=== PATIENT | female | born 1980 | race Caucasian/White ===

== ENCOUNTER 2019-03-07 02:42 | Emergency (ER) | payer MEDICAID ==
[~2019-03-07] VITALS: Ht 157.5 cm; Wt 54.5 kg
[2019-03-07] MEDS ORDERED: ondansetron/PF 4mg/2ml inj IV ONE (03:10)
[2019-03-07] MEDS ORDERED: normal saline 1000ML IV soln IVB ONE (03:10)
[2019-03-07 03:58] LABS: BASOPHILS % (AUTO) 0.6 % (0-1); EOSINOPHILS # (AUTO) 0.1 X10'3 (0-0.9); EOSINOPHILS % (AUTO) 0.9 % (0-6); HEMATOCRIT 37.4 % (35.0-45.0); HEMOGLOBIN 12.8 g/dl (12.0-16.0); LYMPHOCYTES # (AUTO) 1.7 X10'3 (1.1-4.8); LYMPHOCYTES % (AUTO) 21.2 % (21-51); MEAN CORPUSCULAR HEMOGLOBIN 31.5 PG (27.0-31.0); MEAN CORPUSCULAR HGB CONC 34.1 g/dL (33.0-36.5); MEAN CORPUSCULAR VOLUME 92.5 FL (78-98); MEAN PLATELET VOLUME 9.3 FL (7.4-10.4); MONOCYTES # (AUTO) 0.5 X10'3 (0-0.9); MONOCYTES % (AUTO) 6.1 % (2-12); NEUTROPHILS # (AUTO) 5.7 X10'3 (1.8-7.7); NEUTROPHILS % (AUTO) 71.2 % (42-75); PLATELET COUNT 251 X10'3 (140-440); RED BLOOD COUNT 4.05 X10'6 (4.20-5.60); RED CELL DISTRIBUTION WIDTH 12.9 % (11.5-14.5)
[2019-03-07 04:11] LABS: ALANINE AMINOTRANSFERASE 21 U/L (12-78); ALBUMIN 3.9 G/DL (3.4-5.0); ALBUMIN/GLOBULIN RATIO 1.1 (1.1-1.5); ALKALINE PHOSPHATASE 115 IU/L (46-116); ANION GAP 10 (8-16); ASPARTATE AMINO TRANSFERASE 19 U/L (10-37); BILIRUBIN,TOTAL 0.4 MG/DL (0.1-1.0); BLOOD UREA NITROGEN 7 MG/DL (7-18); BUN/CREATININE RATIO 9.3 (6.6-38.0); CALCIUM 8.5 MG/DL (8.5-10.1); CHLORIDE 105 MMOL/L (99-107); CREATININE 0.75 MG/DL (0.40-0.90); GLUCOSE 96 MG/DL (70-104); LIPASE 132 U/L (73-393); POTASSIUM 3.8 MMOL/L (3.5-5.1); SODIUM 138 MMOL/L (135-145); TOTAL PROTEIN 7.5 G/DL (6.4-8.2); eGFR 87 ML/MIN
[2019-03-07 04:25] LABS: CLARITY,URINE SLIGHTLY CLOUDY (Clear); COLOR,URINE YELLOW (Yellow); GLUCOSE, URINE NEGATIVE (Neg); KETONES,URINE NEGATIVE (Neg); LEUKOCYTE ESTERASE ,URINE NEGATIVE (Neg); NITRITES, URINE POSITIVE (Neg); OCCULT BLOOD,URINE TRACE-INTACT (Neg); PH,URINE 7.5 (4.8-8.0); PROTEIN,URINE NEGATIVE (Neg); UROBILINOGEN,URINE 0.2 E.U/dL (0.2-1.0)
[2019-03-07 04:30] LABS: UA COLLECTION TYPE CLN CATCH MIDSTREAM
[2019-03-07 04:31] LABS: BACTERIA,URINE 4+ /HPF (Neg); RBC,URINE NONE SEEN /HPF (0-2); WBC,URINE 0-4 /HPF (0-4)
[2019-03-07 04:32] LABS: SQUAMOUS EPITHELIAL CELL,UR FEW /LPF (FEW)
[2019-03-07] MEDS ORDERED: SULF1TAB49 PO (06:11)
[2019-03-07] MEDS ORDERED: ACET-3068 PO (06:11)
[2019-03-07] MEDS ORDERED: METR-159 PO (06:11)
[2019-03-07] MEDS ORDERED: HYDROcodone/acetaminophen 5mg/325mg tablet PO ONE (06:25)
[2019-03-07] MEDS ORDERED: TRAM50TA2 PO (06:41)
[2019-03-07 06:44] VITALS: BP 114/82
== END 2019-03-07 06:46 | disposition home or self-care (01) ==
LOC: ER 02:43
DX: N39.0 Urinary tract infection, site not specified (principal); N76.0 Acute vaginitis; M54.5 Low back pain; R11.10 Vomiting, unspecified; F17.200 Nicotine dependence, unspecified, uncomplicated; Z88.0 Allergy status to penicillin
CPT/HCPCS: 36415; 80053; 81001; 83605; 83690; 85025; 87040; 87077; 87088; 87186; 87210; 87491; 87591; 96361; 96374; 99283; J2405; J7030; Q0112

== ENCOUNTER 2019-07-13 19:20 | Emergency (ER) | payer MEDICAID ==
[~2019-07-13] VITALS: Ht 157.5 cm; Wt 50.0 kg
[2019-07-13 19:34] VITALS: BP 123/82
[2019-07-13 20:21] LABS: URINE HCG NEGATIVE (NEG)
[2019-07-13 20:30] LABS: CLARITY,URINE SLIGHTLY CLOUDY (Clear); COLOR,URINE YELLOW (Yellow); GLUCOSE, URINE NEGATIVE (Neg); KETONES,URINE NEGATIVE (Neg); LEUKOCYTE ESTERASE ,URINE NEGATIVE (Neg); NITRITES, URINE POSITIVE (Neg); OCCULT BLOOD,URINE TRACE-INTACT (Neg); PROTEIN,URINE NEGATIVE (Neg)
[2019-07-13 20:34] LABS: UA COLLECTION TYPE CLN CATCH MIDSTREAM
[2019-07-13 20:38] LABS: BACTERIA,URINE 4+ /HPF (Neg); MUCUS STRANDS FEW /LPF (Neg); RBC,URINE 0-2 /HPF (0-2); SQUAMOUS EPITHELIAL CELL,UR FEW /LPF (FEW)
[2019-07-13] MEDS ORDERED: cephalexin 250mg capsule PO STA (21:18)
[2019-07-13] MEDS ORDERED: CEPH500C5 PO (21:24)
== END 2019-07-13 21:28 | disposition home or self-care (01) ==
LOC: ER 19:21
DX: N39.0 Urinary tract infection, site not specified (principal); F17.200 Nicotine dependence, unspecified, uncomplicated; Z88.0 Allergy status to penicillin; Z79.899 Other long term (current) drug therapy
CPT/HCPCS: 81001; 81025; 87077; 87088; 87186; 99283

== ENCOUNTER 2019-09-28 01:21 | Emergency (ER) | payer MEDICAID ==
[~2019-09-28] VITALS: Ht 157.5 cm; Wt 47.7 kg
[~2019-09-28 01:21] MED LIST: CEPH500C5 PO
[2019-09-28 01:23] VITALS: BP 133/85
[2019-09-28] MEDS ORDERED: dexamethasone sod phosphate 10mg/ml inj IM STA (02:38)
[2019-09-28] MEDS ORDERED: HYDR28CR14 TOP (02:39)
[2019-09-28] MEDS ORDERED: triamcinolone acetonide 40mg/ml inj IM ONE (02:40)
== END 2019-09-28 03:15 | disposition home or self-care (01) ==
LOC: ER 01:21
DX: L30.9 Dermatitis, unspecified (principal); Z88.0 Allergy status to penicillin
CPT/HCPCS: 96372; 99284; J1100; J3301

== ENCOUNTER 2019-12-14 17:31 | Emergency (ER) | payer MEDICAID ==
[~2019-12-14] VITALS: Ht 157.5 cm; Wt 50.0 kg
[~2019-12-14 17:31] MED LIST changes: +HYDR28CR14 TOP
[2019-12-14] MEDS ORDERED: CEPH500C5 PO (17:49)
[2019-12-14] MEDS ORDERED: PHEN-716 PO (17:49)
[2019-12-14 18:08] LABS: URINE HCG NEGATIVE (NEG)
[2019-12-14 18:09] LABS: CLARITY,URINE SLIGHTLY CLOUDY (Clear); COLOR,URINE YELLOW (Yellow); GLUCOSE, URINE NEGATIVE (Neg); KETONES,URINE NEGATIVE (Neg); LEUKOCYTE ESTERASE ,URINE SMALL (Neg); NITRITES, URINE POSITIVE (Neg); OCCULT BLOOD,URINE MODERATE (Neg); PROTEIN,URINE 30 mg/dl (Neg); UROBILINOGEN,URINE 0.2 E.U/dL (0.2-1.0)
[2019-12-14 18:13] LABS: UA COLLECTION TYPE CLN CATCH MIDSTREAM
[2019-12-14 18:16] LABS: BACTERIA,URINE 3+ /HPF (Neg); MUCUS STRANDS FEW /LPF (Neg); RBC,URINE 0-2 /HPF (0-2); SQUAMOUS EPITHELIAL CELL,UR MANY /LPF (FEW); WBC,URINE 20-30 /HPF (0-4)
[2019-12-14 19:20] LABS: CLARITY,URINE SLIGHTLY CLOUDY (Clear); COLOR,URINE YELLOW (Yellow); GLUCOSE, URINE NEGATIVE (Neg); KETONES,URINE NEGATIVE (Neg); LEUKOCYTE ESTERASE ,URINE NEGATIVE (Neg); NITRITES, URINE POSITIVE (Neg); OCCULT BLOOD,URINE TRACE-INTACT (Neg); PROTEIN,URINE TRACE mg/dl (Neg); UA COLLECTION TYPE CLN CATCH MIDSTREAM
[2019-12-14 19:23] VITALS: BP 115/84
[2019-12-14 19:37] LABS: BACTERIA,URINE 3+ /HPF (Neg); MUCUS STRANDS FEW /LPF (Neg); SQUAMOUS EPITHELIAL CELL,UR FEW /LPF (FEW)
== END 2019-12-14 19:15 | disposition home or self-care (01) ==
LOC: ER 17:33
DX: N39.0 Urinary tract infection, site not specified (principal); Z88.0 Allergy status to penicillin; Z79.899 Other long term (current) drug therapy; Z90.710 Acquired absence of both cervix and uterus
CPT/HCPCS: 81001; 81025; 87077; 87088; 87186; 99283

== ENCOUNTER 2020-01-18 19:21 | Emergency (ER) | payer MEDICAID ==
[~2020-01-18] VITALS: Ht 157.5 cm; Wt 51.5 kg
[~2020-01-18 19:21] MED LIST changes: +PHEN-716 PO
[2020-01-18] MEDS ORDERED: ketorolac tromethamine 15mg/ml inj. IV ONE (19:50)
[2020-01-18] MEDS ORDERED: ondansetron/PF 4mg/2ml inj IV ONE (19:50)
[2020-01-18 20:06] LABS: BASOPHILS % (AUTO) 0.5 % (0-1); EOSINOPHILS # (AUTO) 0.1 X10'3 (0-0.9); EOSINOPHILS % (AUTO) 1.7 % (0-6); HEMATOCRIT 39.6 % (35.0-45.0); HEMOGLOBIN 13.2 g/dl (12.0-16.0); LYMPHOCYTES # (AUTO) 2.4 X10'3 (1.1-4.8); LYMPHOCYTES % (AUTO) 34.6 % (21-51); MEAN CORPUSCULAR HGB CONC 33.4 g/dL (33.0-36.5); MEAN CORPUSCULAR VOLUME 95.9 FL (78-98); MEAN PLATELET VOLUME 8.8 FL (7.4-10.4); MONOCYTES # (AUTO) 0.3 X10'3 (0-0.9); MONOCYTES % (AUTO) 4.9 % (2-12); NEUTROPHILS % (AUTO) 58.3 % (42-75); PLATELET COUNT 258 X10'3 (140-440); RED BLOOD COUNT 4.13 X10'6 (4.20-5.60); RED CELL DISTRIBUTION WIDTH 12.6 % (11.5-14.5); WHITE BLOOD COUNT 6.8 X10'3 (4.5-11.0)
[2020-01-18 20:18] LABS: ALANINE AMINOTRANSFERASE 24 U/L (12-78); ALBUMIN/GLOBULIN RATIO 1.1 (1.1-1.5); ALKALINE PHOSPHATASE 101 IU/L (46-116); ANION GAP 6 (8-16); ASPARTATE AMINO TRANSFERASE 18 U/L (10-37); BILIRUBIN,TOTAL 0.3 MG/DL (0.1-1.0); BLOOD UREA NITROGEN 7 MG/DL (7-18); BUN/CREATININE RATIO 9.2 (6.6-38.0); CALCIUM 8.7 MG/DL (8.5-10.1); CHLORIDE 107 MMOL/L (99-107); CREATININE 0.76 MG/DL (0.40-0.90); GLUCOSE 103 MG/DL (70-104); POTASSIUM 3.9 MMOL/L (3.5-5.1); SODIUM 141 MMOL/L (135-145); TOTAL CARBON DIOXIDE 28.1 MMOL/L (24-32); TOTAL PROTEIN 7.5 G/DL (6.4-8.2); eGFR 85 ML/MIN
[2020-01-18 20:19] LABS: LIPASE 158 U/L (73-393)
[2020-01-18 20:28] VITALS: BP 134/93
--- NOTE | 2020-01-18 20:28 | NUR ---
RELIEVING RN FOR BREAK, GAVE PT WARM BLANKET, PT SAID PAIN MED GIVEN EARLIER "HELPED A LITTLE", C/O RUQ ABD PAIN 03/16, NO N/V
[2020-01-18] MEDS ORDERED: HYDROcodone/acetaminophen 10/325mg tab PO ONE (20:50)
[2020-01-18 20:51] LABS: URINE HCG NEGATIVE (NEG)
[2020-01-18 20:55] LABS: CLARITY,URINE SLIGHTLY CLOUDY (Clear); COLOR,URINE YELLOW (Yellow); GLUCOSE, URINE NEGATIVE (Neg); KETONES,URINE NEGATIVE (Neg); LEUKOCYTE ESTERASE ,URINE TRACE (Neg); NITRITES, URINE POSITIVE (Neg); OCCULT BLOOD,URINE TRACE-INTACT (Neg); PH,URINE 6.5 (4.8-8.0); PROTEIN,URINE NEGATIVE (Neg); UROBILINOGEN,URINE 0.2 E.U/dL (0.2-1.0)
[2020-01-18 20:58] LABS: UA COLLECTION TYPE CLN CATCH MIDSTREAM
[2020-01-18 20:59] LABS: BACTERIA,URINE 1+ /HPF (Neg); RBC,URINE 0-2 /HPF (0-2); SQUAMOUS EPITHELIAL CELL,UR FEW /LPF (FEW); WBC CLUMPS,URINE FEW /HPF (NEGATIVE)
[2020-01-18] MEDS ORDERED: CIPR-230 PO (21:07)
[2020-01-18] MEDS ORDERED: ciprofloxacin 250mg tablet PO ONE (21:10)
== END 2020-01-18 21:22 | disposition home or self-care (01) ==
LOC: ER 19:22
DX: N39.0 Urinary tract infection, site not specified (principal); Z88.0 Allergy status to penicillin; Z79.899 Other long term (current) drug therapy
CPT/HCPCS: 36415; 76700; 80053; 81001; 81025; 83690; 85025; 87077; 87088; 87186; 96374; 96375; 99284; J1885; J2405

== ENCOUNTER 2020-01-26 22:41 | Emergency (ER) | payer MEDICAID ==
[~2020-01-26] VITALS: Ht 157.5 cm; Wt 51.8 kg
[~2020-01-26 22:41] MED LIST changes: +CIPR-230 PO
[2020-01-26] MEDS ORDERED: ondansetron/PF 4mg/2ml inj IV ONE (23:10)
[2020-01-26] MEDS ORDERED: normal saline 1000ML IV soln IVB ONE (23:10)
[2020-01-26] MEDS ORDERED: morphine 4 MG/ML inj SYRINge IV PRN (23:10)
--- NOTE | 2020-01-26 23:35 | NUR ---
Pt to CT
--- NOTE | 2020-01-26 23:49 | NUR ---
Per MD order Dilaudid 1mg IV now.
[2020-01-26] MEDS ORDERED: HYDROmorphone 1 mg/ml syringe IV ONE (23:50)
[2020-01-27] MEDS ORDERED: HYDROmorphone 1 mg/ml syringe IV ONE (00:05)
[2020-01-27 00:17] LABS: ALANINE AMINOTRANSFERASE 24 U/L (12-78); ALBUMIN 3.7 G/DL (3.4-5.0); ALBUMIN/GLOBULIN RATIO 1.1 (1.1-1.5); ALKALINE PHOSPHATASE 93 IU/L (46-116); ANION GAP 7 (8-16); ASPARTATE AMINO TRANSFERASE 28 U/L (10-37); BILIRUBIN,TOTAL 0.5 MG/DL (0.1-1.0); BLOOD UREA NITROGEN 7 MG/DL (7-18); BUN/CREATININE RATIO 8.2 (6.6-38.0); CALCIUM 8.6 MG/DL (8.5-10.1); CHLORIDE 108 MMOL/L (99-107); CREATININE 0.85 MG/DL (0.40-0.90); GLUCOSE 81 MG/DL (70-104); LIPASE 135 U/L (73-393); SODIUM 142 MMOL/L (135-145); TOTAL CARBON DIOXIDE 27.1 MMOL/L (24-32); eGFR 75 ML/MIN
[2020-01-27] MEDS ORDERED: magnesium citrate 296ml oral solution PO ONE (00:20)
[2020-01-27] MEDS ORDERED: normal saline 1000ML IV soln IVB ONE (00:20)
[2020-01-27 00:39] LABS: URINE HCG NEGATIVE (NEG)
[2020-01-27 00:48] LABS: BASOPHILS % (AUTO) 0.5 % (0-1); EOSINOPHILS # (AUTO) 0.1 X10'3 (0-0.9); EOSINOPHILS % (AUTO) 1.3 % (0-6); HEMATOCRIT 35.6 % (35.0-45.0); HEMOGLOBIN 12.1 g/dl (12.0-16.0); LYMPHOCYTES # (AUTO) 2.2 X10'3 (1.1-4.8); LYMPHOCYTES % (AUTO) 32.2 % (21-51); MEAN CORPUSCULAR HEMOGLOBIN 32.3 PG (27.0-31.0); MEAN CORPUSCULAR VOLUME 94.8 FL (78-98); MEAN PLATELET VOLUME 9.3 FL (7.4-10.4); MONOCYTES # (AUTO) 0.5 X10'3 (0-0.9); NEUTROPHILS # (AUTO) 4.1 X10'3 (1.8-7.7); PLATELET COUNT 270 X10'3 (140-440); RED BLOOD COUNT 3.76 X10'6 (4.20-5.60); RED CELL DISTRIBUTION WIDTH 12.8 % (11.5-14.5); WHITE BLOOD COUNT 6.9 X10'3 (4.5-11.0)
[2020-01-27 00:58] VITALS: BP 108/74
[2020-01-27 01:02] LABS: CLARITY,URINE CLEAR (Clear); COLOR,URINE YELLOW (Yellow); GLUCOSE, URINE NEGATIVE (Neg); KETONES,URINE TRACE mg/dl (Neg); LEUKOCYTE ESTERASE ,URINE NEGATIVE (Neg); NITRITES, URINE NEGATIVE (Neg); OCCULT BLOOD,URINE NEGATIVE (Neg); PH,URINE 7.5 (4.8-8.0); PROTEIN,URINE NEGATIVE (Neg)
[2020-01-27 01:03] LABS: UA COLLECTION TYPE CLN CATCH MIDSTREAM
== END 2020-01-27 01:45 | disposition home or self-care (01) ==
LOC: ER 22:42
DX: R10.11 Right upper quadrant pain (principal); R07.81 Pleurodynia; K59.00 Constipation, unspecified; Z90.710 Acquired absence of both cervix and uterus; Z88.0 Allergy status to penicillin; Z79.2 Long term (current) use of antibiotics; Z79.899 Other long term (current) drug therapy
CPT/HCPCS: 36415; 74176; 80053; 81003; 81025; 83690; 85025; 96374; 96375; 99284; J1170; J2270; J2405; J7030

== ENCOUNTER 2020-04-04 18:40 | Emergency (ER) | payer MEDICAID ==
[~2020-04-04] VITALS: Ht 157.5 cm; Wt 49.8 kg
[~2020-04-04 18:40] MED LIST changes: -CIPR-230 PO
[2020-04-04] MEDS ORDERED: CYCL-1 PO (19:38)
[2020-04-04] MEDS ORDERED: IBUP-1984 PO (19:38)
[2020-04-04] MEDS ORDERED: ketorolac tromethamine 15mg/ml inj. IM ONE (19:40)
[2020-04-04 20:14] VITALS: BP 125/87
== END 2020-04-04 20:16 | disposition home or self-care (01) ==
LOC: ER 18:43
DX: S29.011A Strain of muscle and tendon of front wall of thorax, initial encounter (principal); Z90.710 Acquired absence of both cervix and uterus; Z88.0 Allergy status to penicillin; Z79.2 Long term (current) use of antibiotics; Z79.899 Other long term (current) drug therapy; X58.XXXA Exposure to other specified factors, initial encounter; Y93.89 Activity, other specified; Y92.89 Other specified places as the place of occurrence of the external cause; Y99.8 Other external cause status
CPT/HCPCS: 96372; 99283; J1885; 99284

== ENCOUNTER 2020-06-19 20:56 | Emergency (ER) | payer MEDICAID ==
[~2020-06-19] VITALS: Ht 157.5 cm; Wt 54.5 kg
[~2020-06-19 20:56] MED LIST changes: +CYCL-1 PO
[2020-06-19] MEDS ORDERED: ibuprofen tablet 400 MG TABLET PO STA (21:46)
[2020-06-19 22:39] LABS: URINE HCG NEGATIVE (NEG)
[2020-06-19 22:41] LABS: ANION GAP 9 (8-16); CALCIUM 8.5 MG/DL (8.5-10.1); CHLORIDE 104 MMOL/L (99-107); CREATININE 0.74 MG/DL (0.40-0.90); GLUCOSE 79 MG/DL (70-104); POTASSIUM 3.5 MMOL/L (3.5-5.1); SODIUM 138 MMOL/L (135-145); TOTAL CARBON DIOXIDE 24.9 MMOL/L (24-32); eGFR 88 ML/MIN
[2020-06-19 22:44] LABS: BLOOD UREA NITROGEN 15 MG/DL (7-18); BUN/CREATININE RATIO 20.3 (6.6-38.0)
[2020-06-19 22:46] LABS: BASOPHILS % (AUTO) 0.5 % (0-1); EOSINOPHILS # (AUTO) 0.1 X10'3 (0-0.9); EOSINOPHILS % (AUTO) 1.4 % (0-6); HEMATOCRIT 36.6 % (35.0-45.0); HEMOGLOBIN 12.3 g/dl (12.0-16.0); LYMPHOCYTES # (AUTO) 2.6 X10'3 (1.1-4.8); LYMPHOCYTES % (AUTO) 40.2 % (21-51); MEAN CORPUSCULAR HEMOGLOBIN 31.6 PG (27.0-31.0); MEAN CORPUSCULAR HGB CONC 33.7 g/dL (33.0-36.5); MEAN CORPUSCULAR VOLUME 93.8 FL (78-98); MEAN PLATELET VOLUME 8.9 FL (7.4-10.4); MONOCYTES # (AUTO) 0.4 X10'3 (0-0.9); MONOCYTES % (AUTO) 6.4 % (2-12); NEUTROPHILS # (AUTO) 3.4 X10'3 (1.8-7.7); NEUTROPHILS % (AUTO) 51.5 % (42-75); PLATELET COUNT 236 X10'3 (140-440); RED CELL DISTRIBUTION WIDTH 12.8 % (11.5-14.5); WHITE BLOOD COUNT 6.6 X10'3 (4.5-11.0)
[2020-06-19 22:47] LABS: CLARITY,URINE SLIGHTLY CLOUDY (Clear); COLOR,URINE YELLOW (Yellow); GLUCOSE, URINE NEGATIVE (Neg); KETONES,URINE NEGATIVE (Neg); LEUKOCYTE ESTERASE ,URINE NEGATIVE (Neg); NITRITES, URINE POSITIVE (Neg); OCCULT BLOOD,URINE TRACE-INTACT (Neg); PROTEIN,URINE NEGATIVE (Neg)
[2020-06-19 22:55] LABS: UA COLLECTION TYPE CLN CATCH MIDSTREAM
[2020-06-19 22:57] LABS: BACTERIA,URINE 3+ /HPF (Neg); RBC,URINE 0-2 /HPF (0-2); SQUAMOUS EPITHELIAL CELL,UR MODERATE /LPF (FEW)
[2020-06-19 22:58] LABS: MUCUS STRANDS NONE SEEN /LPF (Neg)
[2020-06-19] MEDS ORDERED: sulfamethoxazole/trimethoprim DS (800/160mg) tablet PO ONE (23:15)
[2020-06-19] MEDS ORDERED: SULF1TAB49 PO (23:16)
[2020-06-19 23:22] VITALS: BP 118/80
== END 2020-06-19 23:25 | disposition home or self-care (01) ==
LOC: ER 20:56
DX: N12 Tubulo-interstitial nephritis, not specified as acute or chronic (principal); R10.84 Generalized abdominal pain; R50.9 Fever, unspecified; R30.0 Dysuria; F17.200 Nicotine dependence, unspecified, uncomplicated; F12.90 Cannabis use, unspecified, uncomplicated; Z87.442 Personal history of urinary calculi; Z90.710 Acquired absence of both cervix and uterus; Z88.0 Allergy status to penicillin; Z79.2 Long term (current) use of antibiotics; Z79.899 Other long term (current) drug therapy
CPT/HCPCS: 36415; 74176; 80048; 81001; 81025; 85025; 87077; 87088; 87186; 99284

== ENCOUNTER 2021-08-29 15:20 | Emergency (ER) | payer MEDICAID ==
[~2021-08-29] VITALS: Ht 154.9 cm; Wt 55.5 kg
[~2021-08-29 15:20] MED LIST changes: -CEPH500C5 PO
[2021-08-29 15:43] VITALS: BP 119/80
[2021-08-29 16:22] LABS: ALANINE AMINOTRANSFERASE 23 U/L (12-78); ALBUMIN/GLOBULIN RATIO 1.1 (1.1-1.5); ALKALINE PHOSPHATASE 86 IU/L (46-116); ANION GAP 6 (8-16); ASPARTATE AMINO TRANSFERASE 19 U/L (10-37); BILIRUBIN,TOTAL 0.4 MG/DL (0.1-1.0); BLOOD UREA NITROGEN 10 MG/DL (7-18); BUN/CREATININE RATIO 13.5 (6.6-38.0); CALCIUM 8.7 MG/DL (8.5-10.1); CHLORIDE 106 MMOL/L (99-107); CREATININE 0.74 MG/DL (0.40-0.90); GLUCOSE 89 MG/DL (70-104); POTASSIUM 4.7 MMOL/L (3.5-5.1); SODIUM 138 MMOL/L (135-145); TOTAL CARBON DIOXIDE 26.3 MMOL/L (24-32); TOTAL PROTEIN 7.6 G/DL (6.4-8.2); eGFR 87 ML/MIN
[2021-08-29 16:23] LABS: BASOPHILS % (AUTO) 0.5 % (0-1); EOSINOPHILS # (AUTO) 0.1 X10'3 (0-0.9); EOSINOPHILS % (AUTO) 1.1 % (0-6); HEMATOCRIT 38.1 % (35.0-45.0); HEMOGLOBIN 13.2 g/dl (12.0-16.0); LYMPHOCYTES # (AUTO) 1.5 X10'3 (1.1-4.8); LYMPHOCYTES % (AUTO) 23.2 % (21-51); MEAN CORPUSCULAR HGB CONC 34.6 g/dL (33.0-36.5); MEAN CORPUSCULAR VOLUME 92.4 FL (78-98); MEAN PLATELET VOLUME 9.2 FL (7.4-10.4); MONOCYTES # (AUTO) 0.3 X10'3 (0-0.9); NEUTROPHILS # (AUTO) 4.6 X10'3 (1.8-7.7); NEUTROPHILS % (AUTO) 70.2 % (42-75); PLATELET COUNT 255 X10'3 (140-440); RED BLOOD COUNT 4.12 X10'6 (4.20-5.60); RED CELL DISTRIBUTION WIDTH 12.7 % (11.5-14.5); WHITE BLOOD COUNT 6.6 X10'3 (4.5-11.0)
[2021-08-29 16:30] LABS: COLOR,URINE ORANGE (Yellow); UA COLLECTION TYPE CLN CATCH MIDSTREAM
[2021-08-29 16:31] LABS: CLARITY,URINE CLOUDY (Clear)
[2021-08-29 16:34] LABS: BACTERIA,URINE FEW /HPF (Neg); MUCUS STRANDS NONE SEEN /LPF (Neg); RBC,URINE 0-2 /HPF (0-2); SQUAMOUS EPITHELIAL CELL,UR FEW /LPF (FEW); TRANSITIONAL EPI CELLS,URINE FEW /HPF; WBC,URINE 50-100 /HPF (0-4)
[2021-08-29 19:33] LABS: URINE HCG NEGATIVE (NEG)
== END 2021-08-30 00:24 | disposition left against medical advice (07) ==
LOC: ER 15:21
DX: R10.84 Generalized abdominal pain (principal); F12.90 Cannabis use, unspecified, uncomplicated; Z87.442 Personal history of urinary calculi; Z90.710 Acquired absence of both cervix and uterus; Z88.0 Allergy status to penicillin; Z88.1 Allergy status to other antibiotic agents; Z88.8 Allergy status to other drugs, medicaments and biological substances; Z79.899 Other long term (current) drug therapy
CPT/HCPCS: 36415; 80053; 81001; 81025; 85025; 87088; 99283

== ENCOUNTER 2021-09-14 17:18 | Emergency (ER) | payer MEDICAID ==
[~2021-09-14] VITALS: Ht 157.5 cm; Wt 52.3 kg
[2021-09-14 17:19] VITALS: BP 103/79
[2021-09-14] MEDS ORDERED: dexamethasone 4mg tablet PO ONE (18:05)
[2021-09-14] MEDS ORDERED: HYDROcodone/acetaminophen 10/325mg tab PO ONE (18:05)
[2021-09-14] MEDS ORDERED: DEXA6TAB6 PO (18:29)
[2021-09-14] MEDS ORDERED: NIRM1TAB PO (18:29)
[2021-09-14] MEDS ORDERED: HYDR-3972 PO (18:29)
== END 2021-09-14 18:57 | disposition home or self-care (01) ==
LOC: ER 17:18
DX: U07.1 COVID-19 (principal); J02.9 Acute pharyngitis, unspecified; R05.9 Cough, unspecified; R51.9 Headache, unspecified; R11.2 Nausea with vomiting, unspecified; F17.200 Nicotine dependence, unspecified, uncomplicated; F12.90 Cannabis use, unspecified, uncomplicated; Z88.0 Allergy status to penicillin; Z88.1 Allergy status to other antibiotic agents; Z87.442 Personal history of urinary calculi; Z90.710 Acquired absence of both cervix and uterus; Z88.8 Allergy status to other drugs, medicaments and biological substances; Z79.899 Other long term (current) drug therapy
CPT/HCPCS: 99283

== ENCOUNTER 2021-12-20 09:37 | Day surgery (SDC) | payer MEDICAID ==
[2021-12-15 15:44] LABS: BASOPHILS % (AUTO) 0.5 % (0-1); EOSINOPHILS # (AUTO) 0.1 X10'3 (0-0.9); EOSINOPHILS % (AUTO) 1.6 % (0-6); LYMPHOCYTES # (AUTO) 1.8 X10'3 (1.1-4.8); LYMPHOCYTES % (AUTO) 36.7 % (21-51); MEAN CORPUSCULAR HEMOGLOBIN 31.7 PG (27.0-31.0); MEAN CORPUSCULAR HGB CONC 34.2 g/dL (33.0-36.5); MEAN CORPUSCULAR VOLUME 92.7 FL (78-98); MEAN PLATELET VOLUME 8.7 FL (7.4-10.4); MONOCYTES # (AUTO) 0.3 X10'3 (0-0.9); MONOCYTES % (AUTO) 6.6 % (2-12); NEUTROPHILS # (AUTO) 2.7 X10'3 (1.8-7.7); NEUTROPHILS % (AUTO) 54.6 % (42-75); PRE OP HEMATOCRIT 37.2 % (35.0-45.0); PRE OP HEMOGLOBIN 12.7 g/dL (12.0-16.0); PRE OP PLATELET COUNT 254 X10'3 (140-440); RED BLOOD COUNT 4.01 X10'6 (4.20-5.60); RED CELL DISTRIBUTION WIDTH 13.4 % (11.5-14.5)
[2021-12-15 15:59] LABS: ALBUMIN 3.8 G/DL (3.4-5.0); ALBUMIN/GLOBULIN RATIO 1.2 (1.1-1.5); ALKALINE PHOSPHATASE 87 IU/L (46-116); BLOOD UREA NITROGEN 9 MG/DL (7-18); BUN/CREATININE RATIO 13.2 (6.6-38.0); CALCIUM 8.3 MG/DL (8.5-10.1); CHLORIDE 106 MMOL/L (99-107); CREATININE 0.68 MG/DL (0.40-0.90); PRE OP ALT 19 U/L (30-65); PRE OP ANION GAP 4 (8-16); PRE OP AST 19 U/L (10-37); PRE OP BILIRUB, TOTAL 0.5 MG/DL (0.0-1.0); PRE OP GLUCOSE 99 MG/DL (70-104); PRE OP POTASSIUM 4.2 MMOL/L (3.4-5.1); PRE OP SODIUM 138 MMOL/L (135-145); TOTAL CARBON DIOXIDE 28.1 MMOL/L (24-32); TOTAL PROTEIN 7.1 G/DL (6.4-8.2); eGFR > 90 ML/MIN
[2021-12-15 16:03] LABS: HCG SERUM QL NEGATIVE
[~2021-12-20] VITALS: Ht 157.5 cm; Wt 53.3 kg
[~2021-12-20 09:37] MED LIST changes: -CYCL-1 PO; -HYDR28CR14 TOP; -PHEN-716 PO; +famotidine 20mg tablet PO ONE; +ringers solution, lacted 1,000 ML IV SCH
[2021-12-20 10:00] VITALS: BP 106/73
[2021-12-20] MEDS ORDERED: LIDOcaine 0.5% (5mg/ml) 50ml vial ONE (10:26)
[2021-12-20] MEDS ORDERED: BUPIVAcaine 0.5% inj/PF 30 ML ONE (12:36)
[2021-12-20] MEDS ORDERED: midazolam 1 mg/ML 2ml injection ONE (12:52)
[2021-12-20] MEDS ORDERED: fentaNYL/PF 50MCG/1 ML 2ML syringe ONE (12:52)
[2021-12-20] MEDS ORDERED: BUPIVAcaine 0.5% inj/PF 30 ml vial IJ ONE (13:12)
[2021-12-20] MEDS ORDERED: propofol inj 20 ML IV ONE (13:18)
[2021-12-20 13:25] VITALS: BP 98/66
--- NOTE | 2021-12-20 13:25 | NUR ---
Received from OR via BED, accompanied by Anesthesiologist and report given by Anesthesiologist. PATIENT WAKING UP, NO S/S OF PAIN, V/S WNL, SCD ON, 20G TO LUE, RIGHT WRIST DRESSING CDI W/ SLING. ICE AND ELEVATED RUE.
[2021-12-20 13:35] VITALS: BP 106/65
[2021-12-20 13:45] VITALS: BP 95/64
[2021-12-20 13:55] VITALS: BP 103/69
[2021-12-20 14:05] VITALS: BP 107/66
--- NOTE | 2021-12-20 14:05 | NUR ---
PATIENT A&OX4, DENIES PAIN, V/S WNL, SCD OFF, 20G TO LUE D/C, RIGHT WRIST DRESSING CDI W/ SLING. ICE AND ELEVATED RUE. I HAVE REVIEWED D/C INSTRUCTIONS WITH PATIENT and they have verbalized understanding patient d/c home with all belongings and family gave transport home.
[2021-12-21] MEDS ORDERED: ceFAZolin inj. 2,000 MG in dextrose 5%-water 100 ML IV ONE (05:30)
== END 2021-12-20 14:05 | disposition home or self-care (01) ==
LOC: PAS 09:37
PROVIDERS: ATTEND Orthopaedic Surgery Hand Surgery
DX: G56.01 Carpal tunnel syndrome, right upper limb (principal); F17.210 Nicotine dependence, cigarettes, uncomplicated; F32.A Depression, unspecified; F41.9 Anxiety disorder, unspecified; Z20.822 Contact with and (suspected) exposure to COVID-19; Z79.899 Other long term (current) drug therapy; Z88.0 Allergy status to penicillin; Z98.890 Other specified postprocedural states; Z90.710 Acquired absence of both cervix and uterus; Z87.442 Personal history of urinary calculi
CPT/HCPCS: 29848; 36415; 80053; 82948; 84703; 85025; J2250; J2704; J3010; J3490; J7030; J7120; S0020; U0003; U0005; Z7506; Z7512; A4215; A7000

== ENCOUNTER 2022-01-25 01:08 | Emergency (ER) | payer MEDICAID ==
[~2022-01-25] VITALS: Ht 157.5 cm; Wt 54.0 kg
[2022-01-25 01:28] VITALS: BP 123/83
[2022-01-26] MEDS ORDERED: NO HOME MEDS (15:32)
== END 2022-01-25 03:34 | disposition left against medical advice (07) ==
LOC: ER 01:08
DX: M79.601 Pain in right arm (principal); Z53.21 Procedure and treatment not carried out due to patient leaving prior to being seen by health care provider

== ENCOUNTER 2022-01-26 10:18 | Inpatient (IN) | payer MEDICAID ==
[~2022-01-26] VITALS: Ht 157.5 cm; Wt 54.5 kg
[2022-01-26 10:52] LABS: BASOPHILS # (AUTO) 0.1 X10'3 (0-0.2); BASOPHILS % (AUTO) 0.8 % (0-1); EOSINOPHILS # (AUTO) 0.1 X10'3 (0-0.9); EOSINOPHILS % (AUTO) 1.2 % (0-6); HEMATOCRIT 37.2 % (35.0-45.0); HEMOGLOBIN 12.5 g/dl (12.0-16.0); LYMPHOCYTES # (AUTO) 1.5 X10'3 (1.1-4.8); LYMPHOCYTES % (AUTO) 15.1 % (21-51); MEAN CORPUSCULAR HEMOGLOBIN 31.2 PG (27.0-31.0); MEAN CORPUSCULAR HGB CONC 33.6 g/dL (33.0-36.5); MEAN CORPUSCULAR VOLUME 92.8 FL (78-98); MONOCYTES # (AUTO) 0.7 X10'3 (0-0.9); MONOCYTES % (AUTO) 6.9 % (2-12); NEUTROPHILS # (AUTO) 7.7 X10'3 (1.8-7.7); PLATELET COUNT 212 X10'3 (140-440); RED BLOOD COUNT 4.01 X10'6 (4.20-5.60); RED CELL DISTRIBUTION WIDTH 13.1 % (11.5-14.5); WHITE BLOOD COUNT 10.1 X10'3 (4.5-11.0)
[2022-01-26 11:09] LABS: ALANINE AMINOTRANSFERASE 21 U/L (12-78); ALBUMIN 3.4 G/DL (3.4-5.0); ALKALINE PHOSPHATASE 95 IU/L (46-116); ANION GAP 10 (8-16); ASPARTATE AMINO TRANSFERASE 13 U/L (10-37); BILIRUBIN,TOTAL 0.5 MG/DL (0.1-1.0); BLOOD UREA NITROGEN 8 MG/DL (7-18); BUN/CREATININE RATIO 12.7 (6.6-38.0); CALCIUM 8.2 MG/DL (8.5-10.1); CHLORIDE 106 MMOL/L (99-107); CREATININE 0.63 MG/DL (0.40-0.90); GLUCOSE 106 MG/DL (70-104); POTASSIUM 4.1 MMOL/L (3.5-5.1); SODIUM 142 MMOL/L (135-145); TOTAL CARBON DIOXIDE 26.5 MMOL/L (24-32); TOTAL PROTEIN 6.9 G/DL (6.4-8.2); eGFR > 90 ML/MIN
[2022-01-26] MEDS ORDERED: cefTRIAXone 1g/NS 100ml IVPB 100 ML IV ONE (11:55)
[2022-01-26] MEDS ORDERED: ondansetron/PF 4mg/2ml inj IV ONE (11:55)
[2022-01-26] MEDS ORDERED: normal saline 1000ml 1,000 ML IV ONE (11:55)
[2022-01-26] MEDS ORDERED: morphine 4 MG/ML inj SYRINge IV ONE ×2 (11:55→13:35)
[2022-01-26] MEDS ORDERED: clindamycin 600mg/D5W 50ml 50 ML IV ONE (11:55)
[2022-01-26 13:55] LABS: CLARITY,URINE CLEAR (Clear); COLOR,URINE YELLOW (Yellow); GLUCOSE, URINE NEGATIVE (Neg); KETONES,URINE TRACE mg/dl (Neg); LEUKOCYTE ESTERASE ,URINE NEGATIVE (Neg); NITRITES, URINE NEGATIVE (Neg); OCCULT BLOOD,URINE TRACE-INTACT (Neg); PROTEIN,URINE NEGATIVE (Neg); UROBILINOGEN,URINE 0.2 E.U/dL (0.2-1.0)
[2022-01-26 13:59] LABS: UA COLLECTION TYPE CLN CATCH MIDSTREAM
[2022-01-26 14:09] LABS: BACTERIA,URINE 1+ /HPF (Neg); RBC,URINE 0-2 /HPF (0-2); SQUAMOUS EPITHELIAL CELL,UR MODERATE /LPF (FEW); WBC,URINE 0-4 /HPF (0-4)
[2022-01-26] MEDS ORDERED: magnesium 4gm in 100ml NS 100 ML IV PRN (15:15)
[2022-01-26] MEDS ORDERED: HYDROmorphone/PF 0.2 MG/ML SYRINGE IV PRN (15:15)
[2022-01-26] MEDS ORDERED: POTASSIUM BICARB 20meq eff tab 20 MEQ TABLET.EFF PO PRN (15:15)
[2022-01-26] MEDS ORDERED: magnesium Cl slow-release 64mg tablet PO PRN (15:15)
[2022-01-26] MEDS ORDERED: acetaminophen 325mg tablet PO PRN ×2 (15:15)
[2022-01-26] MEDS ORDERED: potassium CL 10mEq/100ml bag 100 ML IV PRN (15:15)
[2022-01-26] MEDS ORDERED: HYDROmorphone inj. 0.5 MG/0.5 ML DISP.SYRIN IV PRN (15:15)
[2022-01-26] MEDS ORDERED: magnesium 2GM in 50ml NS 50 ML IV PRN (15:15)
[2022-01-26] MEDS ORDERED: morphine 2 MG/ML inj. syringe IV PRN (15:15)
[2022-01-26] MEDS ORDERED: HYDROcodone/acetaminophen 5mg/325mg tablet PO PRN (15:15)
[2022-01-26] MEDS: nicotine 14mg patch - 24hr TD SCH (15:25)
[2022-01-26] MEDS ORDERED: NO HOME MEDS (15:32)
--- NOTE | 2022-01-26 15:35 | NUR ---
FAXED OVER MED RELEASE FORM TO [facility] TO GET PTS RECORDS FROM 01/25/2022 PER GRIFFIN COCHRAN
[2022-01-26] MEDS: normal saline 1000ml 1,000 ML IV SCH (15:47)
[2022-01-26] MEDS: vancomycin/NS 1 GM ADD-VANTAGE 250 ML IV SCH (16:52)
[2022-01-26] MEDS: HYDROcodone/acetaminophen 10/325mg tab PO PRN ×2 (16:52→22:54)
[2022-01-26] MEDS: K and/or MAG REPLACEMENT MC SCH (20:00)
[2022-01-26] MEDS ORDERED: temazepam 15mg capsule PO PRN (21:00)
[2022-01-26] MEDS: heparin, porcine 5000 units/ml vial SQ SCH (21:59)
[2022-01-26] MEDS: morphine 2 MG/ML inj. syringe IV PRN (22:53)
[2022-01-27] MEDS: normal saline 1000ml 1,000 ML IV SCH ×3 (01:31→20:19)
[2022-01-27 02:29] LABS: BASOPHILS % (AUTO) 0.3 % (0-1); EOSINOPHILS # (AUTO) 0.1 X10'3 (0-0.9); HEMATOCRIT 36.4 % (35.0-45.0); HEMOGLOBIN 12.3 g/dl (12.0-16.0); LYMPHOCYTES # (AUTO) 1.8 X10'3 (1.1-4.8); LYMPHOCYTES % (AUTO) 19.7 % (21-51); MEAN CORPUSCULAR HGB CONC 33.9 g/dL (33.0-36.5); MEAN CORPUSCULAR VOLUME 94.5 FL (78-98); MEAN PLATELET VOLUME 9.2 FL (7.4-10.4); MONOCYTES # (AUTO) 0.7 X10'3 (0-0.9); MONOCYTES % (AUTO) 7.8 % (2-12); NEUTROPHILS # (AUTO) 6.5 X10'3 (1.8-7.7); NEUTROPHILS % (AUTO) 71.2 % (42-75); PLATELET COUNT 188 X10'3 (140-440); RED BLOOD COUNT 3.85 X10'6 (4.20-5.60); RED CELL DISTRIBUTION WIDTH 13.1 % (11.5-14.5); WHITE BLOOD COUNT 9.1 X10'3 (4.5-11.0)
[2022-01-27 02:45] LABS: ALANINE AMINOTRANSFERASE 21 U/L (12-78); ALBUMIN 3.1 G/DL (3.4-5.0); ALBUMIN/GLOBULIN RATIO 0.9 (1.1-1.5); ALKALINE PHOSPHATASE 94 IU/L (46-116); ANION GAP 9 (8-16); ASPARTATE AMINO TRANSFERASE 18 U/L (10-37); BILIRUBIN,TOTAL 0.5 MG/DL (0.1-1.0); BLOOD UREA NITROGEN 6 MG/DL (7-18); CHLORIDE 107 MMOL/L (99-107); GLUCOSE 129 MG/DL (70-104); POTASSIUM 3.3 MMOL/L (3.5-5.1); SODIUM 142 MMOL/L (135-145); TOTAL CARBON DIOXIDE 25.8 MMOL/L (24-32); TOTAL PROTEIN 6.5 G/DL (6.4-8.2); eGFR > 90 ML/MIN
[2022-01-27 02:50] VITALS: BP 94/52
[2022-01-27] MEDS: morphine 2 MG/ML inj. syringe IV PRN (02:58)
[2022-01-27] MEDS: vancomycin/NS 1 GM ADD-VANTAGE 250 ML IV SCH ×2 (04:22→20:18)
[2022-01-27 06:00] VITALS: BP 93/56
--- NOTE | 2022-01-27 06:08 | NUR ---
Patient in room ORTHO 4009. I have received report from Ayanna RN and had the opportunity to ask questions and assume patient care.
[2022-01-27] MEDS: heparin, porcine 5000 units/ml vial SQ SCH ×2 (07:15→20:19)
[2022-01-27] MEDS: POTASSIUM BICARB 20meq eff tab 20 MEQ TABLET.EFF PO PRN ×2 (07:16→17:28)
[2022-01-27] MEDS: HYDROcodone/acetaminophen 10/325mg tab PO PRN ×2 (07:23→11:23)
[2022-01-27] MEDS: nicotine 14mg patch - 24hr TD SCH (08:00)
[2022-01-27] MEDS: K and/or MAG REPLACEMENT MC SCH ×2 (08:00→20:18)
[2022-01-27 10:00] VITALS: BP 100/61
[2022-01-27] MEDS ORDERED: ketorolac trometh. 30mg/ml inj. IV ONE (10:30)
[2022-01-27] MEDS: ondansetron/PF 4mg/2ml inj IV PRN (13:10)
[2022-01-27] MEDS ORDERED: LORazepam 2 mg/ml vial IV ONE (14:15)
[2022-01-27] MEDS ORDERED: normal saline 500ml IV soln 500 ML IV ONE (17:30)
--- NOTE | 2022-01-27 17:30 | NUR ---
Spoke with Dr Yancey about BP low 82/45 ordered 500ml bolus. Ordered CT of hand since could not tolerate MRI. DC'd dilaudid do to low BP. New IV placed per ultrasound picc nurse.
--- NOTE | 2022-01-27 18:30 | NUR ---
Patient report given to Marisa TEAGUE
[2022-01-27 22:00] VITALS: BP 121/72
[2022-01-28] MEDS: HYDROcodone/acetaminophen 10/325mg tab PO PRN ×4 (00:40→16:32)
[2022-01-28] MEDS ORDERED: VANCOMYCIN LEVEL IV ONE (03:30)
[2022-01-28 04:28] LABS: BASOPHILS % (AUTO) 0.5 % (0-1); EOSINOPHILS # (AUTO) 0.1 X10'3 (0-0.9); EOSINOPHILS % (AUTO) 1.2 % (0-6); HEMATOCRIT 33.4 % (35.0-45.0); HEMOGLOBIN 11.3 g/dl (12.0-16.0); LYMPHOCYTES # (AUTO) 1.4 X10'3 (1.1-4.8); LYMPHOCYTES % (AUTO) 21.6 % (21-51); MEAN CORPUSCULAR HEMOGLOBIN 31.3 PG (27.0-31.0); MEAN CORPUSCULAR HGB CONC 33.7 g/dL (33.0-36.5); MEAN CORPUSCULAR VOLUME 92.6 FL (78-98); MEAN PLATELET VOLUME 9.3 FL (7.4-10.4); MONOCYTES # (AUTO) 0.5 X10'3 (0-0.9); MONOCYTES % (AUTO) 7.8 % (2-12); NEUTROPHILS # (AUTO) 4.6 X10'3 (1.8-7.7); NEUTROPHILS % (AUTO) 68.9 % (42-75); PLATELET COUNT 207 X10'3 (140-440); RED BLOOD COUNT 3.61 X10'6 (4.20-5.60); WHITE BLOOD COUNT 6.6 X10'3 (4.5-11.0)
[2022-01-28 04:41] LABS: ALANINE AMINOTRANSFERASE 20 U/L (12-78); ALBUMIN 2.7 G/DL (3.4-5.0); ALBUMIN/GLOBULIN RATIO 0.8 (1.1-1.5); ALKALINE PHOSPHATASE 84 IU/L (46-116); ANION GAP 7 (8-16); ASPARTATE AMINO TRANSFERASE 16 U/L (10-37); BILIRUBIN,TOTAL 0.3 MG/DL (0.1-1.0); BLOOD UREA NITROGEN 4 MG/DL (7-18); BUN/CREATININE RATIO 7.4 (6.6-38.0); CHLORIDE 109 MMOL/L (99-107); CREATININE 0.54 MG/DL (0.40-0.90); GLUCOSE 112 MG/DL (70-104); POTASSIUM 4.3 MMOL/L (3.5-5.1); SODIUM 142 MMOL/L (135-145); TOTAL CARBON DIOXIDE 26.2 MMOL/L (24-32); eGFR > 90 ML/MIN
[2022-01-28] MEDS: vancomycin/NS 1 GM ADD-VANTAGE 250 ML IV SCH (04:50)
[2022-01-28 07:00] VITALS: BP 81/37
[2022-01-28] MEDS: normal saline 1000ml 1,000 ML IV SCH ×2 (07:15→16:27)
[2022-01-28] MEDS: K and/or MAG REPLACEMENT MC SCH ×2 (08:00→19:40)
[2022-01-28] MEDS: nicotine 14mg patch - 24hr TD SCH (08:00)
[2022-01-28] MEDS: heparin, porcine 5000 units/ml vial SQ SCH ×2 (09:59→19:39)
[2022-01-28 10:00] VITALS: BP 100/62
[2022-01-28] MEDS: ondansetron/PF 4mg/2ml inj IV PRN (14:05)
[2022-01-28] MEDS: VANCOmycin 1250MG/NS 250ml Bag 250 ML IV SCH (16:27)
--- NOTE | 2022-01-28 16:45 | NUR ---
paged Dr. Yancey regarding Dr. Cain visit and patient is ok to discharge.
[2022-01-28 18:00] VITALS: BP 104/69
--- NOTE | 2022-01-28 18:56 | NUR ---
Patient in room ORTHO 4009. I have received report from Lillian TEAGUE and had the opportunity to ask questions and assume patient care.
[2022-01-28 22:00] VITALS: BP 106/63
[2022-01-28 22:31] LABS: URINE AMPHETAMINE SCREEN NEGATIVE (Neg); URINE BARBITUATE SCREEN NEGATIVE (Neg); URINE BENZODIAZEPINES SCREEN NEGATIVE (Neg); URINE CANNABINOID SCREEN NEGATIVE (Neg); URINE COCAINE SCREEN NEGATIVE (Neg); URINE METHADONE SCREEN NEGATIVE (Neg); URINE OPIATE SCREEN POSITIVE (Neg); URINE PHENCYCLIDINE SCREEN NEGATIVE (Neg)
[2022-01-29] MEDS: HYDROcodone/acetaminophen 10/325mg tab PO PRN ×2 (02:00→09:24)
[2022-01-29] MEDS: normal saline 1000ml 1,000 ML IV SCH (02:00)
[2022-01-29] MEDS: VANCOmycin 1250MG/NS 250ml Bag 250 ML IV SCH (03:40)
[2022-01-29 05:40] LABS: BASOPHILS % (AUTO) 0.3 % (0-1); EOSINOPHILS # (AUTO) 0.1 X10'3 (0-0.9); EOSINOPHILS % (AUTO) 1.9 % (0-6); HEMATOCRIT 31.8 % (35.0-45.0); HEMOGLOBIN 10.8 g/dl (12.0-16.0); LYMPHOCYTES # (AUTO) 1.7 X10'3 (1.1-4.8); LYMPHOCYTES % (AUTO) 33.9 % (21-51); MEAN CORPUSCULAR HEMOGLOBIN 31.7 PG (27.0-31.0); MEAN CORPUSCULAR HGB CONC 33.9 g/dL (33.0-36.5); MEAN CORPUSCULAR VOLUME 93.4 FL (78-98); MEAN PLATELET VOLUME 9.2 FL (7.4-10.4); MONOCYTES # (AUTO) 0.3 X10'3 (0-0.9); MONOCYTES % (AUTO) 6.7 % (2-12); NEUTROPHILS # (AUTO) 2.8 X10'3 (1.8-7.7); NEUTROPHILS % (AUTO) 57.2 % (42-75); PLATELET COUNT 210 X10'3 (140-440); RED CELL DISTRIBUTION WIDTH 12.9 % (11.5-14.5)
[2022-01-29 05:52] LABS: ALANINE AMINOTRANSFERASE 16 U/L (12-78); ALBUMIN 2.5 G/DL (3.4-5.0); ALBUMIN/GLOBULIN RATIO 0.8 (1.1-1.5); ALKALINE PHOSPHATASE 75 IU/L (46-116); ANION GAP 8 (8-16); ASPARTATE AMINO TRANSFERASE 16 U/L (10-37); BILIRUBIN,TOTAL 0.3 MG/DL (0.1-1.0); BLOOD UREA NITROGEN 3 MG/DL (7-18); BUN/CREATININE RATIO 5.9 (6.6-38.0); CALCIUM 7.8 MG/DL (8.5-10.1); CHLORIDE 110 MMOL/L (99-107); CREATININE 0.51 MG/DL (0.40-0.90); GLUCOSE 119 MG/DL (70-104); SODIUM 143 MMOL/L (135-145); TOTAL CARBON DIOXIDE 24.9 MMOL/L (24-32); TOTAL PROTEIN 5.7 G/DL (6.4-8.2); eGFR > 90 ML/MIN
[2022-01-29 06:00] VITALS: BP 92/52
--- NOTE | 2022-01-29 06:39 | NUR ---
Problems reprioritized. Patient report given, questions answered & plan of care reviewed with Lillian TEAGUE.
--- NOTE | 2022-01-29 06:39 | NUR ---
Patient in room ORTHO 4009. I have received report from Alem TEAGUE and had the opportunity to ask questions and assume patient care.
[2022-01-29] MEDS: K and/or MAG REPLACEMENT MC SCH (07:33)
[2022-01-29] MEDS: nicotine 14mg patch - 24hr TD SCH (07:34)
[2022-01-29] MEDS: heparin, porcine 5000 units/ml vial SQ SCH (09:24)
[2022-01-29 10:00] VITALS: BP 140/56
[2022-01-29] MEDS ORDERED: LINE600T12 PO (10:49)
[2022-01-29] MEDS ORDERED: HYDR-3965 PO (10:49)
[2022-01-29] MEDS ORDERED: LACT1CAP26 PO (10:49)
[2022-01-30] MEDS ORDERED: VANCOMYCIN LEVEL IV ONE (03:30)
== END 2022-01-29 13:00 | disposition home or self-care (01) | DRG 383 ==
LOC: ER 10:18 → ED HOLD 15:21 → ORTHO 4S 01-27 02:30
PROVIDERS: ADMIT Internal Medicine; ATTEND Internal Medicine
DX: L03.113 Cellulitis of right upper limb (principal); F17.210 Nicotine dependence, cigarettes, uncomplicated; G89.29 Other chronic pain; Z20.822 Contact with and (suspected) exposure to COVID-19; M54.9 Dorsalgia, unspecified; L03.011 Cellulitis of right finger; Z87.442 Personal history of urinary calculi; Z90.710 Acquired absence of both cervix and uterus; W55.01XA Bitten by cat, initial encounter; Y93.89 Activity, other specified; Y92.89 Other specified places as the place of occurrence of the external cause; Y99.8 Other external cause status; Z88.0 Allergy status to penicillin; Z88.2 Allergy status to sulfonamides; Z72.89 Other problems related to lifestyle; Z71.6 Tobacco abuse counseling
CPT/HCPCS: 36415; 71045; 73130; 73200; 80053; 80202; 80305; 81001; 83605; 84145; 85025; 87040; 87081; 93005; 96365; 96375; 97110; 97162; 99285; A6258; G0378; J0696; J1170; J1644; J1885; J2060; J2270; J2405; J3370; J3490; J7030; J7040

== ENCOUNTER 2023-03-07 14:58 | Emergency (ER) | payer MEDICAID ==
[~2023-03-07] VITALS: Ht 157.5 cm; Wt 75.0 kg
[~2023-03-07 14:58] MED LIST changes: +LACT1CAP26 PO; -famotidine 20mg tablet PO ONE; -ringers solution, lacted 1,000 ML IV SCH
[2023-03-07 15:24] VITALS: BP 124/87; PULSE 90; RESP 17; TEMP 98.1; O2SAT 100
== END 2023-03-07 19:12 | disposition home or self-care (01) ==
LOC: ER 14:58
DX: M25.571 Pain in right ankle and joints of right foot (principal); M25.572 Pain in left ankle and joints of left foot; M25.562 Pain in left knee; F12.90 Cannabis use, unspecified, uncomplicated; N20.0 Calculus of kidney; Z88.0 Allergy status to penicillin; Z88.2 Allergy status to sulfonamides; Z90.710 Acquired absence of both cervix and uterus; W19.XXXA Unspecified fall, initial encounter; Y93.89 Activity, other specified; Y92.89 Other specified places as the place of occurrence of the external cause; Y99.8 Other external cause status
CPT/HCPCS: 73564; 73630; 99284; A6449

== ENCOUNTER 2023-06-05 06:36 | Inpatient (IN) | payer MEDICAID ==
[~2023-06-05] VITALS: Ht 157.5 cm; Wt 78.2 kg
[2023-06-05] MEDS ORDERED: ondansetron/PF 4mg/2ml inj IV ONE (07:20)
[2023-06-05] MEDS: morphine 2 MG/ML inj. syringe IV PRN ×6 (07:25→20:18)
[2023-06-05 07:34] LABS: BILIRUBIN,URINE NEGATIVE (Neg); CLARITY,URINE CLOUDY (Clear); COLOR,URINE YELLOW (Yellow); GLUCOSE, URINE NEGATIVE (Neg); KETONES,URINE NEGATIVE (Neg); LEUKOCYTE ESTERASE ,URINE MODERATE (Neg); NITRITES, URINE POSITIVE (Neg); OCCULT BLOOD,URINE LARGE (Neg); PROTEIN,URINE >=300 mg/dl (Neg); UROBILINOGEN,URINE 0.2 E.U/dL (0.2-1.0)
[2023-06-05 07:40] LABS: URINE HCG NEGATIVE (NEG)
[2023-06-05 07:41] LABS: UA COLLECTION TYPE CLN CATCH MIDSTREAM
[2023-06-05 07:43] LABS: RBC,URINE TNTC /HPF (0-2); WBC,URINE TNTC /HPF (0-4)
[2023-06-05 07:44] LABS: BACTERIA,URINE 3+ /HPF (Neg); MUCUS STRANDS NONE SEEN /LPF (Neg); SQUAMOUS EPITHELIAL CELL,UR FEW /LPF (FEW)
[2023-06-05] MEDS ORDERED: levoFLOXACIN-Levaquin 750MG/D5 150 ML IV ONE (08:15)
[2023-06-05 08:53] LABS: BASOPHILS # (AUTO) 0.1 X10'3 (0-0.2); BASOPHILS % (AUTO) 0.4 % (0-1); EOSINOPHILS # (AUTO) 0.2 X10'3 (0-0.9); EOSINOPHILS % (AUTO) 1.3 % (0-6); HEMATOCRIT 40.9 % (35.0-45.0); HEMOGLOBIN 13.6 g/dl (12.0-16.0); LYMPHOCYTES # (AUTO) 1.8 X10'3 (1.1-4.8); LYMPHOCYTES % (AUTO) 12.1 % (21-51); MEAN CORPUSCULAR HEMOGLOBIN 32.2 PG (27.0-31.0); MEAN CORPUSCULAR HGB CONC 33.3 g/dL (33.0-36.5); MEAN CORPUSCULAR VOLUME 96.8 FL (78-98); MEAN PLATELET VOLUME 8.8 FL (7.4-10.4); MONOCYTES # (AUTO) 0.8 X10'3 (0-0.9); MONOCYTES % (AUTO) 5.5 % (2-12); NEUTROPHILS # (AUTO) 11.8 X10'3 (1.8-7.7); NEUTROPHILS % (AUTO) 80.7 % (42-75); PLATELET COUNT 307 X10'3 (140-440); RED BLOOD COUNT 4.22 X10'6 (4.20-5.60); RED CELL DISTRIBUTION WIDTH 13.4 % (11.5-14.5); WHITE BLOOD COUNT 14.7 X10'3 (4.5-11.0)
[2023-06-05 09:13] LABS: ALANINE AMINOTRANSFERASE 60 U/L (12-78); ALBUMIN 3.6 G/DL (3.4-5.0); ALBUMIN/GLOBULIN RATIO 0.9 (1.1-1.5); ALKALINE PHOSPHATASE 170 IU/L (46-116); ANION GAP 8 (8-16); ASPARTATE AMINO TRANSFERASE 50 U/L (10-37); BILIRUBIN,TOTAL 0.3 MG/DL (0.1-1.0); BLOOD UREA NITROGEN 8 MG/DL (7-18); BUN/CREATININE RATIO 10.8 (10.0-20.0); CALCIUM 8.9 MG/DL (8.5-10.1); CHLORIDE 101 MMOL/L (99-107); CREATININE 0.74 MG/DL (0.40-0.90); GLUCOSE 115 MG/DL (70-104); POTASSIUM 4.1 MMOL/L (3.5-5.1); SODIUM 137 MMOL/L (135-145); TOTAL CARBON DIOXIDE 27.6 MMOL/L (24-32); TOTAL PROTEIN 7.5 G/DL (6.4-8.2); eCRCL 79 ML/MIN; eGFR 86 ML/MIN
[2023-06-05] MEDS ORDERED: HYDROmorphone inj. 0.5 MG/0.5 ML DISP.SYRIN IV PRN (10:50)
[2023-06-05] MEDS ORDERED: acetaminophen 325mg tablet PO PRN ×2 (10:50)
[2023-06-05] MEDS ORDERED: potassium Cl 40MEQ/1/2NS 520ml 520 ML IV PRN (10:50)
[2023-06-05] MEDS ORDERED: morphine 2 MG/ML inj. syringe IV PRN (10:50)
[2023-06-05] MEDS ORDERED: haloperidol 5mg tablet PO PRN (10:50)
[2023-06-05] MEDS ORDERED: ondansetron/PF 4mg/2ml inj IV PRN (10:50)
[2023-06-05] MEDS ORDERED: mag hydrox/Alum hydrox/simeth 30ml oral suspension PO PRN (10:50)
[2023-06-05] MEDS ORDERED: acetaminophen 650mg rectal suppository RC PRN (10:50)
[2023-06-05] MEDS ORDERED: magnesium 2GM in 50ml NS 50 ML IV PRN (10:50)
[2023-06-05] MEDS ORDERED: LORazepam 2 mg/ml vial IV PRN (10:50)
[2023-06-05] MEDS ORDERED: dextrose 50%-water 50ml dispensing syringe IV PRN (10:50)
[2023-06-05] MEDS ORDERED: magnesium 4gm in 100ml NS 100 ML IV PRN (10:50)
[2023-06-05] MEDS ORDERED: haloperidol lactate 5mg/ml inj IM PRN (10:50)
--- NOTE | 2023-06-05 11:27 | NUR ---
attempted to call report. nurse will call back.
--- NOTE | 2023-06-05 12:16 | NUR ---
called floor, nurse in room, will call back. Also brought pt meal tray.
[2023-06-05] MEDS ORDERED: NO HOME MEDS (12:17)
[2023-06-05] MEDS: thiamine 100mg/ml 2ml inj. IV SCH ×2 (13:51→20:21)
[2023-06-05 14:00] VITALS: BP 121/83; PULSE 91; RESP 16; TEMP 97.7; O2SAT 99
[2023-06-05 18:30] VITALS: BP 118/72; PULSE 97; RESP 16; TEMP 97.1; O2SAT 97
--- NOTE | 2023-06-05 19:30 | NUR ---
Problems reprioritized. Patient report given, questions answered & plan of care reviewed with ZAHIDA King.
[2023-06-05] MEDS: K and/or MAG REPLACEMENT MC SCH (20:00)
[2023-06-05] MEDS: docusate sod 100mg capsule PO SCH (20:00)
[2023-06-05] MEDS: ciprofloxacin/D5W 200mg/100mL 100 ML IV SCH (20:21)
[2023-06-05 22:00] VITALS: BP 102/58; PULSE 93; RESP 16; TEMP 98.2; O2SAT 97
[2023-06-06] MEDS: morphine 2 MG/ML inj. syringe IV PRN ×2 (04:19→10:28)
[2023-06-06 06:00] VITALS: BP 122/69; PULSE 94; RESP 16; TEMP 98.6; O2SAT 95
[2023-06-06 06:21] LABS: BASOPHILS % (AUTO) 0.3 % (0-1); EOSINOPHILS # (AUTO) 0.1 X10'3 (0-0.9); EOSINOPHILS % (AUTO) 1.7 % (0-6); HEMATOCRIT 38.4 % (35.0-45.0); HEMOGLOBIN 12.9 g/dl (12.0-16.0); LYMPHOCYTES # (AUTO) 1.9 X10'3 (1.1-4.8); LYMPHOCYTES % (AUTO) 22.4 % (21-51); MEAN CORPUSCULAR HEMOGLOBIN 32.6 PG (27.0-31.0); MEAN CORPUSCULAR HGB CONC 33.5 g/dL (33.0-36.5); MEAN CORPUSCULAR VOLUME 97.3 FL (78-98); MEAN PLATELET VOLUME 8.8 FL (7.4-10.4); MONOCYTES # (AUTO) 0.5 X10'3 (0-0.9); MONOCYTES % (AUTO) 5.6 % (2-12); PLATELET COUNT 259 X10'3 (140-440); RED BLOOD COUNT 3.95 X10'6 (4.20-5.60); RED CELL DISTRIBUTION WIDTH 13.2 % (11.5-14.5); WHITE BLOOD COUNT 8.5 X10'3 (4.5-11.0)
[2023-06-06 06:24] LABS: ALBUMIN 2.9 G/DL (3.4-5.0); ANION GAP 8 (8-16); BLOOD UREA NITROGEN 5 MG/DL (7-18); BUN/CREATININE RATIO 7.2 (10.0-20.0); CALCIUM 8.8 MG/DL (8.5-10.1); CHLORIDE 104 MMOL/L (99-107); CREATININE 0.69 MG/DL (0.40-0.90); GLUCOSE 116 MG/DL (70-104); MAGNESIUM 2.1 MG/DL (1.5-2.4); POTASSIUM 3.7 MMOL/L (3.5-5.1); SODIUM 138 MMOL/L (135-145); TOTAL CARBON DIOXIDE 26.5 MMOL/L (24-32); eCRCL 85 ML/MIN; eGFR > 90 ML/MIN
--- NOTE | 2023-06-06 06:39 | NUR ---
I have received report from November and had the opportunity to ask questions and assume patient care. No distress at this time.
[2023-06-06 06:47] LABS: HEMOGLOBIN A1C 5.4 % (4.5-6.2)
[2023-06-06 08:00] VITALS: RESP 16; O2SAT 98
[2023-06-06] MEDS: K and/or MAG REPLACEMENT MC SCH (08:00)
[2023-06-06] MEDS ORDERED: folic acid 1mg/0.2ml inj IV SCH (08:00)
[2023-06-06] MEDS: ciprofloxacin/D5W 200mg/100mL 100 ML IV SCH (08:07)
[2023-06-06] MEDS: thiamine 100mg/ml 2ml inj. IV SCH (08:07)
[2023-06-06] MEDS: docusate sod 100mg capsule PO SCH (08:34)
[2023-06-06 10:14] VITALS: RESP 16; O2SAT 95
[2023-06-06 10:25] VITALS: RESP 16
--- NOTE | 2023-06-06 10:52 | NUR ---
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
[2023-06-06 11:28] VITALS: RESP 18
[2023-06-06] MEDS ORDERED: HYDR-3965 PO (12:20)
[2023-06-06] MEDS ORDERED: LEVO-65 PO (12:23)
--- NOTE | 2023-06-06 13:31 | NUR ---
Patient discharged w/ no distress. Accompanied by spouse who is driving her home as well. Understand to lease picker prescriptions at their pharmacy and to complete all the antibiotics. Belongings with patient upon discharge, all education provided to patient. IV d/c'd from the arm, cannula intact. Walked w/ pt down to the front lobby.
[2023-06-07] MEDS ORDERED: LORazepam 2 mg/ml vial IV PRN (10:50)
[2023-06-07] MEDS ORDERED: LORazepam 1 MG tablet PO PRN (10:50)
[2023-06-09] MEDS ORDERED: thiamine 100mg tablet PO SCH (08:00)
[2023-06-09] MEDS ORDERED: LORazepam 1 MG tablet PO PRN (10:50)
[2023-06-09] MEDS ORDERED: LORazepam 2 mg/ml vial IV PRN (10:50)
[2023-06-10] MEDS ORDERED: folic acid 1mg tablet PO SCH (08:00)
== END 2023-06-06 14:21 | disposition home or self-care (01) | DRG 463 ==
LOC: ER 06:36 → ED HOLD 11:11 → EDBEDREQ 11:23 → ORTHO 4S 12:55
PROVIDERS: ADMIT Internal Medicine; ATTEND Internal Medicine
DX: N10 Acute pyelonephritis (principal); F32.A Depression, unspecified; F41.9 Anxiety disorder, unspecified; Z87.442 Personal history of urinary calculi; Z90.710 Acquired absence of both cervix and uterus; Z87.891 Personal history of nicotine dependence
CPT/HCPCS: 36415; 76770; 80048; 80053; 81001; 81025; 82948; 83036; 83605; 83735; 85025; 87040; 87077; 87081; 87088; 87186; 96374; 96375; 99285; G0378; J0744; J1956; J2270; J2405; J3411; J3490; J7040

== ENCOUNTER 2024-02-13 16:41 | Emergency (ER) | payer MEDICAID ==
[~2024-02-13] VITALS: Ht 157.5 cm; Wt 80.0 kg
[~2024-02-13 16:41] MED LIST changes: -LACT1CAP26 PO; +NO HOME MEDS
[2024-02-13 17:28] LABS: BASOPHILS # (AUTO) 0.1 X10'3 (0-0.2); BASOPHILS % (AUTO) 0.6 % (0-1); EOSINOPHILS # (AUTO) 0.2 X10'3 (0-0.9); EOSINOPHILS % (AUTO) 2.7 % (0-6); HEMATOCRIT 41.3 % (35.0-45.0); HEMOGLOBIN 13.9 g/dl (12.0-16.0); LYMPHOCYTES # (AUTO) 2.1 X10'3 (1.1-4.8); LYMPHOCYTES % (AUTO) 23.6 % (21-51); MEAN CORPUSCULAR HEMOGLOBIN 32.6 PG (27.0-31.0); MEAN CORPUSCULAR HGB CONC 33.7 g/dL (33.0-36.5); MEAN CORPUSCULAR VOLUME 96.8 FL (78-98); MEAN PLATELET VOLUME 9.4 FL (7.4-10.4); MONOCYTES # (AUTO) 0.6 X10'3 (0-0.9); MONOCYTES % (AUTO) 6.3 % (2-12); NEUTROPHILS % (AUTO) 66.8 % (42-75); PLATELET COUNT 271 X10'3 (140-440); RED BLOOD COUNT 4.27 X10'6 (4.20-5.60); RED CELL DISTRIBUTION WIDTH 12.9 % (11.5-14.5)
[2024-02-13 17:40] LABS: APTT 26 SECONDS (22-32); PROTHROMBIN TIME 10.5 SECONDS (9.0-12.0)
[2024-02-13 17:45] LABS: ALANINE AMINOTRANSFERASE 65 U/L (12-78); ALBUMIN 3.9 G/DL (3.4-5.0); ALBUMIN/GLOBULIN RATIO 0.9 (1.1-1.5); ALKALINE PHOSPHATASE 194 IU/L (46-116); ANION GAP 11 (8-16); ASPARTATE AMINO TRANSFERASE 45 U/L (10-37); BILIRUBIN,TOTAL 0.3 MG/DL (0.1-1.0); BLOOD UREA NITROGEN 15 MG/DL (7-18); BUN/CREATININE RATIO 14.2 (10.0-20.0); CALCIUM 9.4 MG/DL (8.5-10.1); CHLORIDE 103 MMOL/L (99-107); CREATININE 1.06 MG/DL (0.40-0.90); GLUCOSE 153 MG/DL (70-104); LIPASE 47 U/L (16-77); POTASSIUM 3.9 MMOL/L (3.5-5.1); SODIUM 139 MMOL/L (135-145); TOTAL CARBON DIOXIDE 25.4 MMOL/L (24-32); TOTAL PROTEIN 8.1 G/DL (6.4-8.2); eCRCL 55 ML/MIN; eGFR 57 ML/MIN
[2024-02-13] MEDS: dicyclomine 10 MG capsule PO ONE (18:16)
[2024-02-13] MEDS: ondansetron 4mg rapidly disintigrating tab PO ONE (18:16)
[2024-02-13] MEDS: ketorolac trometh. 30mg/ml inj. IM ONE (18:18)
[2024-02-13 19:06] LABS: BILIRUBIN,URINE NEGATIVE (Neg); CLARITY,URINE SLIGHTLY CLOUDY (Clear); COLOR,URINE YELLOW (Yellow); GLUCOSE, URINE NEGATIVE (Neg); KETONES,URINE NEGATIVE (Neg); LEUKOCYTE ESTERASE ,URINE NEGATIVE (Neg); NITRITES, URINE NEGATIVE (Neg); OCCULT BLOOD,URINE LARGE (Neg); PH,URINE 5.5 (4.8-8.0); PROTEIN,URINE TRACE mg/dl (Neg); UROBILINOGEN,URINE 0.2 E.U/dL (0.2-1.0)
[2024-02-13 19:14] LABS: UA COLLECTION TYPE NON-SPECIFIED
[2024-02-13 19:21] LABS: BACTERIA,URINE FEW /HPF (Neg); MUCUS STRANDS MODERATE /LPF (Neg); RBC,URINE TNTC /HPF (0-2); SQUAMOUS EPITHELIAL CELL,UR FEW /LPF (FEW); WBC,URINE 0-4 /HPF (0-4)
[2024-02-13 19:22] LABS: TRANSITIONAL EPI CELLS,URINE FEW /HPF
[2024-02-13 19:30] VITALS: BP 119/81; PULSE 86; O2SAT 99
[2024-02-13 19:34] LABS: URINE AMPHETAMINE SCREEN POSITIVE (Neg); URINE BARBITUATE SCREEN NEGATIVE (Neg); URINE BENZODIAZEPINES SCREEN NEGATIVE (Neg); URINE CANNABINOID SCREEN NEGATIVE (Neg); URINE COCAINE SCREEN NEGATIVE (Neg); URINE METHADONE SCREEN NEGATIVE (Neg); URINE OPIATE SCREEN POSITIVE (Neg); URINE PHENCYCLIDINE SCREEN NEGATIVE (Neg)
[2024-02-13 19:45] VITALS: RESP 17
[2024-02-13] MEDS: morphine 4 MG/ML inj SYRINge IV ONE (19:45)
[2024-02-13] MEDS ORDERED: FLO0.4C PO (19:46)
[2024-02-13] MEDS ORDERED: HYDR-3965 PO (19:46)
[2024-02-13] MEDS ORDERED: ONDA-245 PO (19:46)
== END 2024-02-13 20:06 | disposition home or self-care (01) ==
LOC: ER 16:42
DX: N20.9 Urinary calculus, unspecified (principal); Z88.0 Allergy status to penicillin; Z88.8 Allergy status to other drugs, medicaments and biological substances; Z87.442 Personal history of urinary calculi; Z90.49 Acquired absence of other specified parts of digestive tract; Z72.89 Other problems related to lifestyle
CPT/HCPCS: 36415; 74176; 80053; 80305; 81001; 83690; 85025; 85610; 85730; 96372; 96374; 99285; J1885; J2270

== ENCOUNTER 2024-09-06 19:23 | Emergency (ER) | payer MEDICAID ==
[~2024-09-06] VITALS: Ht 157.5 cm; Wt 77.2 kg
[~2024-09-06 19:23] MED LIST changes: +ONDA-245 PO
[2024-09-06 19:25] VITALS: BP 122/81; PULSE 111; RESP 18; TEMP 98.2; O2SAT 96
== END 2024-09-06 20:38 | disposition left against medical advice (07) ==
LOC: ER 19:23
DX: R05.9 Cough, unspecified (principal); R50.9 Fever, unspecified; Z88.0 Allergy status to penicillin; Z88.2 Allergy status to sulfonamides; Z88.8 Allergy status to other drugs, medicaments and biological substances

== ENCOUNTER 2025-02-13 19:59 | Emergency (ER) | payer MEDICAID ==
[~2025-02-13] VITALS: Ht 157.5 cm; Wt 80.8 kg
[2025-02-13 21:02] LABS: MEAN PLATELET VOLUME 8.5 FL (7.4-10.4); RED CELL DISTRIBUTION WIDTH 12.8 % (11.5-14.5)
[2025-02-13 21:18] LABS: CREATININE 0.74 MG/DL (0.40-0.90); TOTAL CARBON DIOXIDE 24.3 MMOL/L (24-32); eCRCL 78 ML/MIN; eGFR 86 ML/MIN
--- NOTE | 2025-02-13 21:18 | Physician Documentation ---
History of Present Illness ~ Chief Complaint: Flank Pain Stated Complaint: UTI Time Seen by MD: 21:12 Primary Medical Doctor: [facility] Mode of Arrival: POV, Dropped Off HPI Patient presents to the emergency room for evaluation of right flank pain onset 2 hours prior to arrival. No prior history is but she does state that she had a kidney infection previously that caused her to be admitted. She denies any fevers or dysuria. Bowel movements reported to be regular. Positive nausea Medication Reconciliation Allergies: Coded Allergies: Penicillins (Verified Allergy, Severe, Airway swelling, 06/05/23) sulfamethoxazole (Unverified Allergy, Unknown, 06/05/23) trimethoprim (Unverified Allergy, Unknown, 06/05/23) Scheduled Ondansetron 8mg ODT (Ondansetron Odt), 1 TAB PO Q8H Miscellaneous Medications Home Med List (No Home Medications), (Reported) Past Medical History Past Medical History: Kidney Stones, UTI Past Surgical History: hysterectomy Alcohol Use: Occasionally Drug Use: none Lives with: Family Lives In: Home Review of Systems ROS All review of systems negative except as per HPI Physical Exam Vital Signs: Temperature: 97.9, Source: Temporal, Heart Rate: 85, Respiratory Rate: 16, BP: 181/113, Pulse Oximetry: 100, Weight: 80.800 Oxygen Flow Rate: 0 Physical Exam General: Patient is awake, alert, oriented x4 in mild distress Head: Normocephalic and atraumatic. Eyes: Conjunctival normal. EOMI. PERRL. ENT: Mucous membranes moist. Neck: Supple, trachea is midline. Chest: Clear to auscultation bilaterally without rales, rhonchi, or wheezes. There is no accessory muscle use or retractions. Cardiac: RRR without murmurs, gallops, or rubs. Abd: Right-sided abdominal pain as well as right-sided flank pain with tenderness to palpation Progress Results/Orders Results/Orders Orders - FRANCISCO JAVIER BHAGAT MD Straight Cath For Urine Sample (02/13/25 20:22) Acetaminophen 1,000mg/100ml Iv (Ofirmev (02/13/25 22:15) Completed Orders - FRANCISCO JAVIER BHAGAT MD Hcg, Ur Ql (02/13/25 20:22) Cbc/Diff (02/13/25 20:22) BMP (02/13/25 20:22) Lipase (02/13/25 20:22) CMP (02/13/25 20:22) Ketorolac Trometh 15mg/Ml Vial (Toradol (02/13/25 21:15) Ondansetron Inj. (Zofran 4mg/2ml Vial) (02/13/25 21:15) Ua W/Microscopic, Cult If Ind (02/13/25 20:56) Fentanyl/Pf (Fentanyl 0.05 Mg/Ml Syringe (02/13/25 22:15) Medications Received in ER Medications (Trade) Dose Ordered Sig/Geovani Route PRN Reason Start Time Stop Time Status Last Admin Dose Admin (Toradol injection) 15 mg ONCE ONCE IV 02/13/25 21:15 02/13/25 21:16 DC 02/13/25 21:33 15 MG (Zofran 4mg/2ml vial) 8 mg ONCE ONCE IV 02/13/25 21:15 02/13/25 21:16 DC 02/13/25 21:32 8 MG Vital Signs 02/13/25 02/13/25 02/13/25 20:17 21:12 21:33 Temp 97.9 Pulse 85 Resp 16 16 16 B/P (MAP) 181/113 Pulse Ox 100 O2 Flow Rate 0 Laboratory Tests Test 02/13/25 20:47 02/13/25 20:56 White Blood Count 9.0 Red Blood Count 3.96 L Hemoglobin 13.1 Hematocrit 38.4 Mean Corpuscular Volume 96.7 Mean Corpuscular Hemoglobin 33.0 H Mean Corpuscular Hemoglobin Concent 34.1 Red Cell Distribution Width 12.8 Platelet Count 244 Mean Platelet Volume 8.5 Neutrophils (%) (Auto) 72.8 Lymphocytes (%) (Auto) 20.3 L Monocytes (%) (Auto) 4.7 Eosinophils (%) (Auto) 2.0 Basophils (%) (Auto) 0.2 Neutrophils # (Auto) 6.6 Lymphocytes # (Auto) 1.8 Monocytes # (Auto) 0.4 Eosinophils # (Auto) 0.2 Basophils # (Auto) 0.0 CBC Comment Sodium Level 136 Potassium Level 3.6 Chloride Level 102 Carbon Dioxide Level 24.3 Anion Gap 10 Blood Urea Nitrogen 12 Creatinine 0.74 Estimated GFR/1.73 m2 86 BUN/Creatinine Ratio 16.2 Glucose Level 106 H Calcium Level 9.8 Total Bilirubin 0.2 Aspartate Amino Transf (AST/SGOT) 41 H Alanine Aminotransferase (ALT/SGPT) 61 Alkaline Phosphatase 162 H Total Protein 7.7 Albumin 3.9 Globulin 3.8 Albumin/Globulin Ratio 1.0 L Lipase 50 Chemistry Comments Urine Specimen Description Cln catch midstream Urine Color Yellow Urine Clarity Clear Urine pH 6.0 Urine Specific [place] 1.020 Urine Protein Negative Urine Glucose (UA) Negative Urine Ketones Negative Urine Occult Blood Large H Urine Nitrite Negative Urine Bilirubin Negative Urine Urobilinogen 0.2 Urine Leukocyte Esterase Negative Urine RBC 10-20 Urine WBC 0-4 Urine Squamous Epithelial Cells Few Urine Bacteria None seen Urine Mucus Few Urine Culture Indicated Not ind Volume Urine Centrifuged 10 ml Urine HCG, Qualitative Negative Urine Comment Medical Decision Making Findings Patient presents to the emergency room with right flank pain. Differentials include but are not limited to kidney stone cholecystitis pancreatitis pyelonephritis musculoskeletal pain ovarian pathology. Patient with hematuria in his responding to Toradol and given patient's history of kidney stones I do believe she is suffering from a kidney stone. Discussed findings and labs with the patient and utilizing shared decision-making we will be deferring CT scan at this time as we believe risk of radiation exposure at this time outweighs any benefit. We will empirically treat for kidney stone with ER precautions dis cussed Departure Disposition: HOME / SELF CARE / HOMELESS Impression: Primary Impression: Kidney stone Condition: Improved Discharge Instructions: Kidney Stones Referrals: NO PRIMARY CARE PROVIDER (PCP) Prescriptions Hydrocodone Bit/Acetaminophen 5/325 MG ([place] 5/325 MG) 5 Mg/325 Mg Tablet 1 TAB PO Q4-6 hours PRN for pain, #10 TAB Prov: FRANCISCO JAVIER BHAGAT MD 02/13/25 Ondansetron 8mg ODT (Ondansetron Odt) 8 Mg Tab.rapdis 1 TAB PO Q6H for nausea/vomiting for 3 Days, #12 TAB 0 Refills Prov: FRANCISCO JAVIER BHAGAT MD 02/13/25 Education Educated: Patient Educated regarding: diagnosis, treatment, need for follow up Signature Scribe Signature: No scribe Attestation: The note accurately reflects work and decisions made by me.Francisco Javier Bhagat MD 02/13/25 22:29 FRANCISCO JAVIER BHAGAT MD Feb 13, 2025 21:18
[2025-02-13] MEDS: ondansetron/PF 4mg/2ml inj IV ONE (21:32)
[2025-02-13] MEDS: ketorolac trometh 15mg/ml vial 15 MG/ML ML IV ONE (21:33)
[2025-02-13 21:36] LABS: LEUKOCYTE ESTERASE ,URINE NEGATIVE (Neg); NITRITES, URINE NEGATIVE (Neg); OCCULT BLOOD,URINE LARGE (Neg); URINE HCG NEGATIVE (NEG)
[2025-02-13 21:37] LABS: UA COLLECTION TYPE CLN CATCH MIDSTREAM
[2025-02-13 21:42] LABS: MUCUS STRANDS FEW /LPF (Neg); SQUAMOUS EPITHELIAL CELL,UR FEW /LPF (FEW)
[2025-02-13] MEDS: fentaNYL/PF 50MCG/1 ML 2ML syringe IV ONE (22:26)
[2025-02-13] MEDS: acetaminophen 1,000mg/100ml IV 100 ML IV ONE (22:26)
[2025-02-13] MEDS ORDERED: HYDR-3965 PO (22:28)
[2025-02-13] MEDS ORDERED: ONDA-245 PO (22:28)
[2025-02-13 22:31] VITALS: BP 132/78; PULSE 84; RESP 16; TEMP 98.2; O2SAT 99
== END 2025-02-13 22:33 | disposition home or self-care (01) ==
LOC: ER 20:00
DX: N20.0 Calculus of kidney (principal); Z90.710 Acquired absence of both cervix and uterus; Z88.2 Allergy status to sulfonamides; Z72.89 Other problems related to lifestyle; Z87.442 Personal history of urinary calculi
CPT/HCPCS: 36415; 80053; 81001; 81025; 83690; 85025; 96374; 96375; 99284; J0131; J1885; J2405; J3010

== ENCOUNTER 2025-05-22 15:39 | Outpatient (CLI) | payer MEDICAID ==
[2025-05-22] MEDS: albuterol 2.5 MG/3 ML nebule NEB PRN (16:47)
[2025-05-22 16:49] VITALS: PULSE 95; RESP 16; O2SAT 97
[2025-05-22 16:55] VITALS: PULSE 95; RESP 18
--- NOTE | 2025-05-23 16:04 | PROCEDURE NOTE - Respiratory ---
Procedure Note-Respiratory Providers to CC Copies To 1: ARMANDO WHITE; JENNI HUERTA MD Procedure Name: This is a spirometry study dated May 22, 2025. The spirometry study was performed both before and after inhaled bronchodilator. There was also a lung diffusion capacity measurement obtained. Spirometry measurements: Both the forced vital capacity and the FEV1 are in the normal range. The FEV1 ratio however is slightly diminished. Some of the flow rate measurements are borderline reduced. After inhaled bronchodilator was administered some of the flow rates show very slight improvement. Lung diffusion measurement: The DLCO measurement is in the lower range of normal. It is noted that the KVO measurement is normal. The alveolar volume measurement is borderline low. Overall conclusion: This study shows very mild abnormality. There is evidence for obstructive ventilatory defect although it appears to be quite mild. The patient improves very slightly with inhaled bronchodilator. This patient may show clinical improvement with regular daily use of bronchodilator medicines. It is strongly recommended that this patient abstain from smoking and/or vaping. We have no previous studies for comparison. MARCEL GILBERT MD May 23, 2025 16:04
== END 2025-05-22 23:59 | disposition home or self-care (01) ==
LOC: RT 15:39
PROVIDERS: ATTEND Physician Assistant
DX: R06.02 Shortness of breath (principal); R10.84 Generalized abdominal pain; Z87.891 Personal history of nicotine dependence
CPT/HCPCS: 94060; 94729; 94760

== ENCOUNTER 2025-06-13 10:39 | Outpatient (CLI) | payer MEDICAID ==
--- NOTE | 2025-06-13 12:02 | RADIOLOGY REPORT ---
CLINICAL HISTORY: GENERALIZED ABDOMEN PAIN;CONSTIPATION TECHNIQUE: CT of the abdomen and pelvis was performed without IV contrast. This exam was performed according to our departmental dose optimization program. Up-to-date CT equipment and radiation dose reduction techniques are utilized as appropriate. CTDI 22 DLP 1092 COMPARISON: CT CT ABDOMEN PELVIS on DOS: 02/13/24 FINDINGS: Abdomen/Pelvis: The spleen, pancreas, adrenal glands, gallbladder, and bladder are unremarkable. There is diffuse hepatic steatosis. There are numerous small bilateral nonobstructing renal calculi measuring up to 2 mm on the left. The uterus is absent. The abdominal aorta is normal in course and caliber. There are no significant atherosclerotic calcifications. There is no free intraperitoneal air or fluid. There is no enlarged abdominal pelvic lymph node. There is no bowel wall thickening or dilatation. The appendix is normal. Scattered submucosal fat within the colon is compatible with an old infectious /inflammatory process. There is a small fat containing umbilical hernia. Other: The imaged lower thorax demonstrates a few strength in bilateral lower lung atelectasis and/or scar. No acute osseous abnormality is evident. Impression: No acute noncontrast CT abnormality in the abdomen / pelvis. Bilateral punctate nonobstructing renal calculi. Diffuse hepatic steatosis Hysterectomy.
--- NOTE | 2025-06-13 12:08 | RADIOLOGY REPORT ---
Procedure: CT CT CHEST LOW DOSE Reason for study/Clinical History: PERSONAL HISTORY OF NICOTINE DEPENDENCE COMPARISON: None TECHNIQUE: Multidetector CT of the chest was performed from the lung apices to the upper abdomen without the use of intravenous contract. Axial, coronal and sagittal multiplanar reformats were performed. Radiation Dose Information: CT Dose: CTDI volume is 2.8 mGy. Dose-length product is 111.1 mGy*cm The dose indicators for CT are the volume Computed Tomography (CT) Dose Index (CTDIvol) and the Dose Length Product (DLP), and are measured in units of mGy and mGy-cm, respectively. These indicators are not patient dose, but values generated from the CT scanner acquisition factors. The report includes radiation exposure data for exposures received during this examination. FINDINGS: Lower neck: Normal thyroid. Lungs: No focal consolidation. Mild centrilobular emphysema. Linear subsegmental atelectasis in the right middle lobe and lingula. No suspicious pulmonary nodules. Heart/Vascular Structures: Normal heart size. No pericardial effusion. Lymph Nodes: No adenopathy Pleura: No pleural effusion or significant pneumothorax. Musculoskeletal: No acute osseous abnormality. Chronic appearing T12 vertebral body compression fracture. Soft tissues: Normal. Upper abdomen: Hepatic steatosis. Hepatomegaly. Bilateral nonobstructing renal stones, partially imaged. IMPRESSION: No suspicious pulmonary nodule. LUNG RADS Category 1: Continue annual screening with LDCT
== END 2025-06-13 23:59 | disposition home or self-care (01) ==
LOC: RAD 10:39
PROVIDERS: ATTEND Physician Assistant
DX: S22.080A Wedge compression fracture of T11-T12 vertebra, initial encounter for closed fracture (principal); J43.2 Centrilobular emphysema; R06.02 Shortness of breath; R10.84 Generalized abdominal pain; Z87.891 Personal history of nicotine dependence; J98.11 Atelectasis; N20.0 Calculus of kidney; R16.0 Hepatomegaly, not elsewhere classified; K76.0 Fatty (change of) liver, not elsewhere classified; X58.XXXA Exposure to other specified factors, initial encounter; Y93.89 Activity, other specified; Y92.89 Other specified places as the place of occurrence of the external cause; Y99.8 Other external cause status
CPT/HCPCS: 71271; 74176